=== PATIENT | male | born 1945 | race Caucasian/White ===

== ENCOUNTER → 2017-08-17 | Outpatient (CLI) | payer MEDICARE ==
[~2017-08-17] MED LIST: ATEN25TA PO; ATOR40TA78 PO; [UNRECOGNIZED DRUG - REMARK]
== END | disposition home or self-care (01) ==
LOC: RAD 17:12
PROVIDERS: ATTEND Physician Assistant Medical
DX: R60.0 Localized edema (principal); Z85.828 Personal history of other malignant neoplasm of skin
CPT/HCPCS: 76536

== ENCOUNTER → 2019-02-16 | Outpatient (CLI) | payer MEDICARE | END | disposition home or self-care (01) | LOC: EDSTATUS 07:00 → CVU 07:05 → EDSTATUS 02-19 13:00 | PROVIDERS: ATTEND Physician Assistant | DX: I65.23 Occlusion and stenosis of bilateral carotid arteries (principal); E04.2 Nontoxic multinodular goiter; I10 Essential (primary) hypertension; M54.16 Radiculopathy, lumbar region; M79.10 Myalgia, unspecified site; M25.811 Other specified joint disorders, right shoulder | CPT/HCPCS: 76536; 93880 ==

== ENCOUNTER → 2020-02-01 | Outpatient (CLI) | payer MEDICARE | END | disposition home or self-care (01) | LOC: CVU 06:41 | PROVIDERS: ATTEND Internal Medicine | DX: I34.0 Nonrheumatic mitral (valve) insufficiency (principal); I11.9 Hypertensive heart disease without heart failure; I48.3 Typical atrial flutter | CPT/HCPCS: 93306 ==

== ENCOUNTER → 2020-02-14 | Outpatient (CLI) | payer MEDICARE ==
[~2020-02-14] MED LIST changes: +ATOR10TA9 PO; +DORZ10DR7 OP; +RIVA20TA PO; +TELM80TA PO; +TRAV5DRO OP
== END | disposition home or self-care (01) ==
LOC: STAR 09:48
PROVIDERS: ATTEND Anesthesiology
DX: Z01.812 Encounter for preprocedural laboratory examination (principal); Z20.828 Contact with and (suspected) exposure to other viral communicable diseases
CPT/HCPCS: 36415; 87635

== ENCOUNTER → 2020-02-14 | Outpatient (CLI) | payer MEDICARE | END | disposition home or self-care (01) | LOC: CFH 10:39 | PROVIDERS: ATTEND Internal Medicine Cardiovascular Disease | DX: I12.9 Hypertensive chronic kidney disease with stage 1 through stage 4 chronic kidney disease, or unspecified chronic kidney disease (principal); N18.9 Chronic kidney disease, unspecified; E78.00 Pure hypercholesterolemia, unspecified; I48.3 Typical atrial flutter; I48.92 Unspecified atrial flutter; I65.22 Occlusion and stenosis of left carotid artery; I82.90 Acute embolism and thrombosis of unspecified vein | CPT/HCPCS: 71046 ==

== ENCOUNTER 2020-02-18 08:15 | Observation (INO) | payer MEDICARE ==
[~2020-02-18] VITALS: Ht 177.8 cm; Wt 108.2 kg
[~2020-02-18 08:15] MED LIST changes: -ATOR10TA9 PO; -DORZ10DR7 OP; -RIVA20TA PO; +ROCURONIUM 10MG/ML,5ML ONE; -TELM80TA PO; -TRAV5DRO OP
[2020-02-18] MEDS ORDERED: ATEN25TA PO (08:43)
[2020-02-18] MEDS ORDERED: TELM80TA PO (08:44)
[2020-02-18] MEDS ORDERED: ATOR10TA9 PO (08:45)
[2020-02-18] MEDS ORDERED: RIVA20TA PO (08:46)
[2020-02-18] MEDS ORDERED: DORZ10DR7 OP (08:48)
[2020-02-18] MEDS ORDERED: TRAV5DRO OP (08:49)
[2020-02-18] MEDS ORDERED: SODIUM CHLORIDE 0.9% 1,000 ML IV SCH (09:00)
[2020-02-18 09:03] VITALS: BP 148/86
[2020-02-18] MEDS ORDERED: SODIUM CHLORIDE 0.9% 1,000 ML IV ONE (09:30)
[2020-02-18] MEDS ORDERED: MIDAZOLAM 1 MG/ML, 2ML ONE (10:38)
[2020-02-18] MEDS ORDERED: FENTANYL PF 250 MCG/5ML ONE (10:39)
[2020-02-18] MEDS ORDERED: LIDOCAINE 1%, 20ML ONE (10:54)
[2020-02-18] MEDS ORDERED: EPHEDRINE 50 MG/ML, 1ML IM PRN (11:00)
[2020-02-18] MEDS ORDERED: ONDANSETRON 2MG/ML, 2ML IVPush PRN (11:00)
[2020-02-18] MEDS ORDERED: LABETALOL 5MG/ML, 20ML IV PRN (11:00)
[2020-02-18] MEDS ORDERED: morphine SULFATE 10 MG/ML, 1ML IVPush PRN (11:00)
[2020-02-18] MEDS ORDERED: ACETAMINOPHEN 325 MG TABLET PO PRN ×2 (11:00→12:30)
[2020-02-18] MEDS ORDERED: OXYcodone 5 MG/5 ML ORAL.SOL UDC PO PRN (11:00)
[2020-02-18] MEDS ORDERED: EPHEDRINE 50 MG/ML, 1ML IVPush PRN (11:00)
[2020-02-18] MEDS ORDERED: FENTANYL PF 100 MCG/2ML IV PRN (11:00)
[2020-02-18] MEDS ORDERED: DIPHENHYDRAMINE 50 MG/ML, 1ML IVPush PRN (11:00)
[2020-02-18] MEDS ORDERED: MEPERIDINE/PF 25MG/0.5ML IVPush PRN (11:00)
[2020-02-18] MEDS ORDERED: PROMETHAZINE 25 MG/ML, 1ML IVPush PRN (11:00)
[2020-02-18] MEDS ORDERED: DIAZEPAM 5 MG/ML, 2ML IVPush PRN (11:00)
[2020-02-18] MEDS ORDERED: SUCCINYLCHOLINE 20 MG/ML, 10ML ONE (11:38)
[2020-02-18] MEDS ORDERED: DEXAMETHASONE 4 MG/ML, 1ML ONE (11:38)
[2020-02-18] MEDS ORDERED: PROPOFOL 10 MG/ML, 20ML ONE (11:38)
[2020-02-18] MEDS ORDERED: ONDANSETRON 2MG/ML, 2ML ONE (11:39)
[2020-02-18] MEDS ORDERED: ATORVASTATIN 10 MG TABLET PO SCH (21:00)
[2020-02-18] MEDS ORDERED: (Dorzolamide Hcl/Timolol Maleat (Dorzolamide-Timolol Eye Drops HOMEOPHTH SCH (21:00)
[2020-02-19] MEDS ORDERED: LOSARTAN 100 MG TAB PO SCH (09:00)
[2020-02-19] MEDS ORDERED: RIVAROXABAN 15 MG TABLET PO SCH (09:00)
[2020-02-19] MEDS ORDERED: ATENOLOL 25 MG TABLET PO SCH (09:00)
[2020-02-19] MEDS ORDERED: RIVAROXABAN 20 MG TABLET PO SCH (09:00)
== END 2020-02-18 16:29 | disposition home or self-care (01) ==
LOC: CACL 08:15 → ORIP 12:10
PROVIDERS: ADMIT Internal Medicine Cardiovascular Disease; ATTEND Internal Medicine Cardiovascular Disease
DX: I48.3 Typical atrial flutter (principal); I12.9 Hypertensive chronic kidney disease with stage 1 through stage 4 chronic kidney disease, or unspecified chronic kidney disease; N18.30 Chronic kidney disease, stage 3 unspecified; E78.00 Pure hypercholesterolemia, unspecified; E78.5 Hyperlipidemia, unspecified; M17.10 Unilateral primary osteoarthritis, unspecified knee; E66.9 Obesity, unspecified; G47.00 Insomnia, unspecified; F10.10 Alcohol abuse, uncomplicated; Z79.82 Long term (current) use of aspirin; Z79.899 Other long term (current) drug therapy; Q21.1 Atrial septal defect
CPT/HCPCS: 93312; 93321; 93325; 93613; 93653; C1730; C1732; C1894; G0378; J0330; J1100; J2250; J2405; J2704; J3010; J3490